=== PATIENT | female | born 1985 | race Caucasian/White ===

== ENCOUNTER 2019-07-26 09:27 | Emergency (ER) | payer OTHER, BC, MEDICAID ==
[~2019-07-26] VITALS: Ht 165.1 cm; Wt 51.0 kg
[2019-07-26 09:34] VITALS: BP 104/66
--- NOTE | 2019-07-26 09:47 | NUR ---
PT AMBULATED TO BED 4.
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
[2019-07-26] MEDS ORDERED: HYDROcodone/APAP 5/325 MG 1 TAB TAB PO ONE (10:20)
--- NOTE | 2019-07-26 10:35 | NUR ---
pt going to xray via [place].
--- NOTE | 2019-07-26 11:09 | NUR ---
Pt returned from CT
[2019-07-26 12:31] VITALS: BP 103/62
--- NOTE | 2019-07-26 12:32 | NUR ---
Patient discharged with v/s stable. Written and verbal after care instructions given and explained. Patient alert, oriented and verbalized understanding of instructions. Ambulatory with steady gait. All questions addressed prior to discharge. ID band removed. Patient advised to follow up with PMD. Rx of medrol dosepak,lidocaine,flexeril given. Patient educated on indication of medication including possible reaction and side effects. Opportunity to ask questions provided and answered.
== END 2019-07-26 12:32 | disposition home or self-care (01) ==
LOC: MED 09:27
DX: S13.9XXA Sprain of joints and ligaments of unspecified parts of neck, initial encounter (principal); M79.10 Myalgia, unspecified site; M51.27 Other intervertebral disc displacement, lumbosacral region; G89.29 Other chronic pain; Z88.0 Allergy status to penicillin; Z88.5 Allergy status to narcotic agent; Z88.6 Allergy status to analgesic agent; V49.88XA Car occupant (driver) (passenger) injured in other specified transport accidents, initial encounter; Y93.89 Activity, other specified; Y92.89 Other specified places as the place of occurrence of the external cause; Y99.8 Other external cause status
CPT/HCPCS: 70450; 72125; 72170; 73030; 73130; 81002; 81025; 99285; Q0092